=== PATIENT | female | born 1995 | race Caucasian/White ===

== ENCOUNTER → 2016-10-18 | Outpatient (CLI) | payer OTHER ==
[~2016-10-18] MED LIST: BIRTH CONTROL; LEVAQUIN 5500 MG/TA1 PO; PREVIFEM 35 MCG1 TA2 PO; ULTRAM 50MG TAB50 MG PO; ZOFRAN8 MG PO
== END ==
LOC: MC.RAD 10-11 09:45
DX: Z12.39 Encounter for other screening for malignant neoplasm of breast (principal)

== ENCOUNTER 2017-01-09 02:54 | Emergency (ER) | payer OTHER ==
[~2017-01-09] VITALS: Ht 175.3 cm; Wt 87.3 kg
[2017-01-09 02:56] VITALS: TEMP 98.3
[2017-01-09 03:49] LABS: BASO # 0.1 (0.0-0.2); BASO % 0.5 % (0.0-2.0); EOS # 0.1 (0.0-0.7); EOS % 0.6 % (0-4.0); GRAN # 11.3 (1.4-6.5); HEMATOCRIT 37.7 % (37.0-47.0); HEMOGLOBIN 13.8 g/dl (12.5-16.0); LYMPH # 1.2 (1.2-3.4); LYMPH % 8.9 % (20.0-51.0); MEAN CELL VOLUME 83 fl (80.0-100.0); MEAN CORPUSCULAR HEMOGLOBIN 30 pg (27.0-31.0); MEAN CORPUSCULAR HGB CONC 37 g/dl (33.0-37.0); MEAN PLATELET VOLUME 9.3 fl (7.4-10.4); MONO # 0.5 (0.1-0.6); MONO % 3.6 % (1.7-9.3); PLATELET COUNT 239 K/mm3 (130-400); RED BLOOD COUNT 4.56 M/mm3 (4.10-5.30); REDCELL DISTRIBUTION WIDTH-CV 12.5 % (11.5-14.5); WHITE BLOOD COUNT 13.1 K/mm3 (4.8-10.8)
[2017-01-09 03:52] LABS: PH 6 (5-8); SQUAMOUS EPITHELIAL None Seen /hpf; URINE APPEARANCE Clear; URINE BACTERIA None Seen /hpf; URINE BILIRUBIN Negative (NEGATIVE); URINE BLOOD Negative (NEGATIVE); URINE COLOR Yellow; URINE GLUCOSE Negative (NEGATIVE); URINE KETONE Trace (NEGATIVE); URINE UROBILINOGEN Negative (NEGATIVE)
[2017-01-09 03:56] LABS: URINE WBC 20-50 /hpf
[2017-01-09 03:59] LABS: CALCIUM 8.8 mg/dL (8.4-10.2); CREATININE, serum 0.62 mg/dL (0.52-1.25); POTASSIUM 3.5 mmol/L (3.4-5.0)
[2017-01-09] MEDS ORDERED: BIRTH CONTROL (04:29)
[2017-01-09] MEDS ORDERED: LEVAQUIN 5500 MG/TA1 PO (04:58)
[2017-01-09] MEDS ORDERED: ZOFRAN8 MG PO (04:58)
[2017-01-09] MEDS ORDERED: ULTRAM 50MG TAB50 MG PO (04:58)
[2017-01-09 05:05] VITALS: BP 130/78; PULSE 89
[2017-01-09] MEDS ORDERED: PREVIFEM 35 MCG1 TA2 PO (15:51)
== END 2017-01-09 05:09 | disposition home or self-care (01) ==
LOC: COL.ER 02:54
PROVIDERS: Emergency Medicine
DX: N10 Acute pyelonephritis (principal)
CPT/HCPCS: J1170; J1885; J2405; Q9967